=== PATIENT | male | born 1945 | race Caucasian/White ===

== ENCOUNTER 2019-03-21 20:18 | Inpatient (IN) | payer MEDICARE ==
--- NOTE | 2019-03-21 20:36 | ED Physician Chart ---
ED Chief Complaint/HPI - Patient Information Date Seen:: 03/21/19 Time Seen:: 20:15 Chief Complaint:: decrease consciousness History of Present Illness:: Patient was admitted to [facility] two days ago and discharged this p.m. He was admitted there for frequent falls. Patient was transferred to [facility] in [place]. His family visited him there and thought that his LOC was less than normal. Reportedly patient is oriented to 2 and now is oriented to one only. Allergies:: Allergies Allergy/AdvReac Type Severity Reaction Status Date / Time No Known Allergies Allergy Verified 03/21/19 20:25 Historian:: Patient, EMS Review:: Transfer documents Reviewed ED Review of Systems - Review of Systems General/Constitutional: No fever, No chills Skin: No skin lesions Head: No headache Eyes: No loss of vision Neck: No neck pain, No swelling Cardio Vascular: No chest pain Pulmonary: No SOB GI: No nausea, No vomiting, No diarrhea G/U: No dysuria Musculoskeletal: No bone or joint pain Endocrine: No polyuria Psychiatric: Prior psych history, Depression Hematopoietic: No bruising Allergic/Immuno: No urticaria Neurological: No syncope ED Past Medical History - Past Medical History Past Medical History: CVA/TIA, Dyslipidemia, Dementia, Other (depression; 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; she of gout; hyperlipidemia) Family History: Other (not available) Social History: Care Facility, Other (formerly smoked cigarettes and drank alcohol) Surgical History: other (unavailable) Psychiatricy History: Depression, Dementia Medication: Reviewed Family Medical History - Family Member Mother History Unknown: Yes ED Physical Exam - Physical Examination General/Constitutional: Awake, Alert Other Gen/Cons comments:: Patient is alert and confused; he states he years is 1921 Head: Atraumatic Eyes: Lids, conjuctiva normal, PERRL Skin: Nl inspection ENMT: External ears, nose nl, Nasal exam nl Other ENMT comments:: Edentulous with upper dentures Neck: No nuchal rigidity Respiratory: Nl effort/Exclusion, Clear to Auscultation, No Wheeze/Rhonchi/Rales Cardio Vascular: RRR, No murmur, gallop, rubs, NL S1 S2 GI: No tenderness/rebounding/guarding, No organomegaly, No hernia Other Extremities comments:: Right upper extremity contracture Other Neuro/Psych comments:: Right upper Extremity contracture ED Labs/Radiology/EKG Results - Radiology Results Results: Chest x-ray negative; - EKG Interpretations Rate & Rhythm: normal sinus rhythm with a rate of 75 [place]: borderline LAD Comments:: Intraventricular conduction delay ED Septic Shock - . Is Septic Shock (SBP<90, OR Lactate>4 mmol\L) present?: No ED Reassessment (Disposition) - Reassessment Reassessment Condition:: Unchanged - Diagnosis Diagnosis:: Altered level consciousness; status post CVA with right upper extremity paralysis; dementia - Aftercare/Follow up Instructions Aftercare/Follow-Up Instructions:: Refer to Discharge Instructions - Patient Disposition Admitted to:: Med/Surg Spoke to:: Deysi Pedroza Admitting Medical Physician:: Deysi Pedroza Condition at Disposition:: Stable, Unchanged
[2019-03-21 20:46] LABS: % BASOPHILS 2.8 % (0.0-2.0); % EOSINOPHILS 2.9 % (0.0-5.0); % LYMPHOCYTES 34.5 % (20.0-50.0); % MONOCYTES 7.3 % (2.0-10.0); % NEUTROPHILS 52.5 % (40.0-80.0); BASOPHILE ABSOLUTE 0.1 Th/cumm (0-0.2); EOSINOPHILE ABSOLUTE 0.1 Th/cmm (0.1-0.4); HEMATOCRIT 43.6 % (41.0-60); HEMOGLOBIN 14.5 gm/dL (12-16); LYMPHOCYTE ABSOLUTE 1.4 Th/cmm (1.5-3.0); MEAN CELL VOLUME 91.2 fl (80-99); MEAN CORPUSCULAR HEMOGLOBIN 30.2 pg (27.0-31.0); MEAN CORPUSCULAR HGB CONC 33.2 pg (28.0-36.0); MONOCYTE ABSOLUTE 0.3 Th/cmm (0.3-1.0); NEUTROPHILE ABSOLUTE 2.3 Th/cmm (1.8-8.0); PLATELET COUNT 130 Th/cmm (150-400); RED BLOOD COUNT 4.78 Mil/cmm (3.80-5.80); RED CELL DISTRIBUTION WIDTH 13.2 % (11.5-20.0); WHITE BLOOD COUNT 4.2 Th/cmm (4.8-10.8)
[2019-03-21 21:10] LABS: ANION GAP 10.3 (7.0-16.0); BUN - UREA NITROGEN 19 mg/dL (7-25); CALCIUM SERUM 9.3 mg/dL (8.6-10.3); CARBON DIOXIDE 27.4 mEq/L (21.0-31.0); CHLORIDE 106 mEq/L (98-107); CREATININE - SERUM 0.6 mg/dL (0.7-1.3); GLUCOSE 130 mg/dL (70-105); POTASSIUM SERUM 3.7 mEq/L (3.5-5.1); SODIUM SERUM 140 mEq/L (136-145)
[2019-03-22 01:40] VITALS: BP 128/72
[2019-03-22 05:26] LABS: % BASOPHILS 0.5 % (0.0-2.0); % EOSINOPHILS 2.4 % (0.0-5.0); % LYMPHOCYTES 26.8 % (20.0-50.0); % MONOCYTES 7.3 % (2.0-10.0); EOSINOPHILE ABSOLUTE 0.1 Th/cmm (0.1-0.4); HEMOGLOBIN 14.7 gm/dL (12-16); LYMPHOCYTE ABSOLUTE 1.3 Th/cmm (1.5-3.0); MEAN CORPUSCULAR HEMOGLOBIN 30.7 pg (27.0-31.0); MEAN CORPUSCULAR HGB CONC 34.1 pg (28.0-36.0); MONOCYTE ABSOLUTE 0.4 Th/cmm (0.3-1.0); NEUTROPHILE ABSOLUTE 3.2 Th/cmm (1.8-8.0); PLATELET COUNT 124 Th/cmm (150-400); RED BLOOD COUNT 4.77 Mil/cmm (3.80-5.80); RED CELL DISTRIBUTION WIDTH 12.9 % (11.5-20.0)
[2019-03-22 05:40] LABS: ALB/GLOB RATIO 1.4 (1.0-1.8); ALKALINE PHOSPHATASE 80 U/L (34-104); ANION GAP 10.5 (7.0-16.0); BUN - UREA NITROGEN 18 mg/dL (7-25); CALCIUM SERUM 9.5 mg/dL (8.6-10.3); CARBON DIOXIDE 28.1 mEq/L (21.0-31.0); CHLORIDE 104 mEq/L (98-107); CREATININE - SERUM 0.6 mg/dL (0.7-1.3); GLUCOSE 95 mg/dL (70-105); POTASSIUM SERUM 3.6 mEq/L (3.5-5.1); SGOT 14 U/L (13-39); SGPT/ALT 14 U/L (7-52); SODIUM SERUM 139 mEq/L (136-145); TOTAL PROTEIN,SERUM 6.8 gm/dL (6.0-8.3)
[2019-03-22 09:47] LABS: BILIRUBIN,TOTAL 0.6 mg/dL (0.3-1.0)
--- NOTE | 2019-03-22 09:47 | Diagnostic Imaging Report ---
CHEST X-RAY: AP view INDICATION: pain COMPARISON: None FINDINGS: There is mild elevation of right hemidiaphragm There is no focal consolidation or pleural effusions The heart is normal in size. Degenerative changes of the spine are noted. IMPRESSION: No focal airspace consolidation identified.
--- NOTE | 2019-03-22 09:52 | Diagnostic Imaging Report ---
Head CT without intravenous contrast Indication: Altered Comparison: None Technique: Axial images were obtained from the vertex to the skull base without IV contrast. Coronal reconstructions were made. Total DLP: 901, [id number] FINDINGS: Images of the brain obtained without contrast demonstrate no evidence of an acute hemorrhage. Atrophy is noted. There is evidence of old infarct along the left lateral ventricle periventricular region. The ventricles and basal cisterns are patent. No mass effect or midline shift. No evidence of a skull fracture or focal soft tissue swelling. There appears to be partially visualized old fracture of the dens. There is mucosal thickening of paranasal sinuses. IMPRESSION: No evidence of an acute intracranial hemorrhage Atrophy. Old lacunar infarct of the left lateral ventricle periventricular region. There appears to be partially visualized, likely old fracture, of the dens. Please correlate with clinical findings and old exams Additional further assessment CT cervical spine may be obtained if necessary.
--- NOTE | 2019-03-22 10:11 | History and Physical ---
History of Present Illness - HPI Chief Complaint: 73 y/o male patient was brought in to ER due to Decreased consciousness. HPI: 73 y/o male patient was admitted to [facility] due to Decreased consciousness. Patient has history of CVA/TIA, Dyslipidemia, Depression, S/p Cerebrovascular accident with right upper extremity contracture, Gout, Hyperlipidemia, Dementia and Depression. Patient had an ER assessment and a complete workup was done. Patient had a chest x-ray done which was negative. Patient had an EKG performed which showed Borderline LAD, Intraventricular conduction delay. Patient was diagnosed with Altered level of consciousness, Status post CVA with right upper extremity paralysis and Dementia. Patient will have a Cardiology consult and a Psych consult. I will follow, treat and monitor patient. Patient will continue current treatment plan as ordered. Vital Signs: Last Vital Signs Temp 98.5 F 03/22/19 03:55 Pulse 80 03/22/19 03:55 Resp 18 03/22/19 08:00 BP 158/63 03/22/19 03:55 Pulse Ox 95 03/22/19 03:55 Past Medical History Cardiovascular: Report: No Pertinent Hx Pulmonary: Report: No Pertinent Hx [employer]: Report: CVA, Dementia, TIA GI: Report: No Pertinent Hx Psych: Report: Depression Musculoskeletal: Report: Weakness, Other ( right upper extremity contracture, paralysis.) Rheumatologic: Report: Gout Infectious Disease: Report: No Pertinent Hx Renal/: Report: No Pertinent Hx Endocrine: Report: No Pertinent Hx Dermatology: Report: No Pertinent Hx - Past Surgical History Past Surgical History: No pertinent Hx Family Medical History - Family Member Mother History Unknown: Yes Social History Smoke: Quit Alcohol: Other (Former Alcohol use.) Drugs: None Lives: Skilled Nursing Domestic Violence: Negative Health Maintenance Health Maintenance: Other (Please see chart.) - Medications Home Medications: Home Medication Medication Instructions Recorded Type Acetaminophen [Tylenol] 325 mg PO Q4HR PRN 03/21/19 History Allopurinol 300 mg PO DAILY 03/21/19 History Amlodipine Besylate 5 mg PO DAILY 03/21/19 History Aspirin 81 mg PO DAILY 03/21/19 History Atorvastatin Calcium [Lipitor] 10 mg PO DAILY 03/21/19 History Docusate Sodium [Colace] 100 mg PO BID 03/21/19 History Duloxetine HCl [Cymbalta] 20 mg PO HS 03/21/19 History Enoxaparin [Lovenox] 40 mg SUBQ DAILY 03/21/19 History Hydrocodone/Acetaminophen [[place] 2 tab PO Q4HR PRN 03/21/19 History 5-325 Tablet] Mirtazapine [Remeron*] 15 mg PO HS 03/21/19 History QUEtiapine Fumarate [SEROquel] 50 mg PO HS 03/21/19 History QUEtiapine Fumarate [SEROquel] 100 mg PO BID 03/21/19 History Quetiapine Fumarate [Seroquel] 50 mg PO QAM 03/21/19 History traMADol HCl [Ultram*] 50 mg PO Q6H PRN 03/21/19 History Other Medications: Please see medication reconciliation sheet. - Allergies Allergies/Adverse Reactions: Allergies Allergy/AdvReac Type Severity Reaction Status Date / Time No Known Allergies Allergy Verified 03/21/19 20:25 Review of Systems - Review of Systems Review of Systems: Patient had altered level of consciousness. Constitutional: Report: Weakness Eyes: Report: No Significant ENT: Report: No Significant Respiratory: Report: No Significant Cardiovascular: Report: No Significant Gastrointestinal: Report: No Significant Genitourinary: Report: No Significant Musculoskeletal: Report: Other (Right upper extremity contracture, paralysis.) Skin: Report: No Significant Neurological: Report: Weakness Physical Exam - Physical Exam HEENT: Report: Ears Nose Throat within normal limits Neck: Report: Within normal limits Cardiovascular Systems: Report: +s1/s2 noted, Regular, Rate and Rhythm Respiratory: Report: Breath Sounds are within normal limits Abdomen: Report: Non-tender to palpation Back: Report: CVA Tenderness noted on the right flank Extremities: Report: Extremities are contracted Skin: Report: Color of skin is within normal limits Neuro/Psych: Report: Depressed affect, Weakness or sensory loss noted. - Lab Results All Lab Results last 24 hours: Laboratory Results - last 24 hr 03/21/19 03/21/19 03/21/19 20:22 20:22 20:22 WBC 4.2 L RBC 4.78 Hgb 14.5 Hct 43.6 MCV 91.2 MCH 30.2 MCHC Differential 33.2 RDW 13.2 Plt Count 130 L MPV 7.7 Neutrophils % 52.5 Lymphocytes % 34.5 Monocytes % 7.3 Eosinophils % 2.9 Basophils % 2.8 H Sodium 140 Potassium 3.7 Chloride 106 Carbon Dioxide 27.4 Anion Gap 10.3 BUN 19 Creatinine 0.6 L Est GFR ( Amer) TNP Est GFR (Non-Af Amer) TNP BUN/Creatinine Ratio 31.7 Glucose 130 H Calcium 9.3 Total Bilirubin AST ALT Alkaline Phosphatase Ammonia 37 Total Protein Albumin Globulin Albumin/Globulin Ratio 03/22/19 03/22/19 05:15 05:15 WBC 5.0 RBC 4.77 Hgb 14.7 Hct 43.0 MCV 90.0 MCH 30.7 MCHC Differential 34.1 RDW 12.9 Plt Count 124 L MPV 7.6 Neutrophils % 63.0 Lymphocytes % 26.8 Monocytes % 7.3 Eosinophils % 2.4 Basophils % 0.5 Sodium 139 Potassium 3.6 Chloride 104 Carbon Dioxide 28.1 Anion Gap 10.5 BUN 18 Creatinine 0.6 L Est GFR ( Amer) TNP Est GFR (Non-Af Amer) TNP BUN/Creatinine Ratio 30.0 Glucose 95 Calcium 9.5 Total Bilirubin 0.6 AST 14 ALT 14 Alkaline Phosphatase 80 Ammonia Total Protein 6.8 Albumin 4.0 L Globulin 2.8 Albumin/Globulin Ratio 1.4 - Assessment Assessment: Altered level of consciousness. History of CVA/TIA. Dyslipidemia. Depression. 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 Gout. Hyperlipidemia. Dementia. Depression. - Plan Plan: Continuation of care. Cardiology consult and Psych consult requested. Monitor Labs. Continue present meds as directed. Monitor Diet/Nutritional support. Psych management per Psych. Pain Management. Physical therapy. Occupational therapy. Safety precaution. Supportive care. Fall precaution, frequent nursing rounds, and as needed restraints to prevent fall. Continue collaborating with consulting specialists, case management and nursing team. Will Monitor patient and continue current treatment plan as ordered.
[2019-03-22] MEDS ORDERED: VTE Chemical Prophylaxis Screen/Admission MC PRN (11:55)
[2019-03-22] MEDS ORDERED: Hydrocodone/APAP 5mg/325mg Tab PO PRN (13:14)
--- NOTE | 2019-03-22 13:35 | General Progress Note ---
Subjective - Review of Systems Service Date: 03/22/19 Subjective: His weakness in the right upper extremity Objective - Results Result Diagrams: 03/22/19 05:15 03/22/19 05:15 Recent Labs: Laboratory Last Values WBC 5.0 Th/cmm (4.8-10.8) 03/22/19 05:15 RBC 4.77 Mil/cmm (3.80-5.80) 03/22/19 05:15 Hgb 14.7 gm/dL (12-16) 03/22/19 05:15 Hct 43.0 % (41.0-60) 03/22/19 05:15 MCV 90.0 fl (80-99) 03/22/19 05:15 MCH 30.7 pg (27.0-31.0) 03/22/19 05:15 MCHC Differential 34.1 pg (28.0-36.0) 03/22/19 05:15 RDW 12.9 % (11.5-20.0) 03/22/19 05:15 Plt Count 124 Th/cmm (150-400) L 03/22/19 05:15 MPV 7.6 fl 03/22/19 05:15 Neutrophils % 63.0 % (40.0-80.0) 03/22/19 05:15 Lymphocytes % 26.8 % (20.0-50.0) 03/22/19 05:15 Monocytes % 7.3 % (2.0-10.0) 03/22/19 05:15 Eosinophils % 2.4 % (0.0-5.0) 03/22/19 05:15 Basophils % 0.5 % (0.0-2.0) 03/22/19 05:15 Sodium 139 mEq/L (136-145) 03/22/19 05:15 Potassium 3.6 mEq/L (3.5-5.1) 03/22/19 05:15 Chloride 104 mEq/L (98-107) 03/22/19 05:15 Carbon Dioxide 28.1 mEq/L (21.0-31.0) 03/22/19 05:15 Anion Gap 10.5 (7.0-16.0) 03/22/19 05:15 BUN 18 mg/dL (7-25) 03/22/19 05:15 Creatinine 0.6 mg/dL (0.7-1.3) L 03/22/19 05:15 Est GFR ( Amer) TNP 03/22/19 05:15 Est GFR (Non-Af Amer) TNP 03/22/19 05:15 BUN/Creatinine Ratio 30.0 03/22/19 05:15 Glucose 95 mg/dL (70-105) 03/22/19 05:15 Calcium 9.5 mg/dL (8.6-10.3) 03/22/19 05:15 Total Bilirubin 0.6 mg/dL (0.3-1.0) 03/22/19 05:15 AST 14 U/L (13-39) 03/22/19 05:15 ALT 14 U/L (7-52) 03/22/19 05:15 Alkaline Phosphatase 80 U/L (34-104) 03/22/19 05:15 Ammonia 37 umol/L (16-53) 03/21/19 20:22 Total Protein 6.8 gm/dL (6.0-8.3) 03/22/19 05:15 Albumin 4.0 gm/dL (4.2-5.5) L 03/22/19 05:15 Globulin 2.8 gm/dL 03/22/19 05:15 Albumin/Globulin Ratio 1.4 (1.0-1.8) 03/22/19 05:15 - Physical Exam Vitals and I&O: Vital Signs Temp 97.8 F 03/22/19 12:11 Pulse 86 03/22/19 12:11 Resp 20 03/22/19 12:11 BP 149/75 03/22/19 12:11 Pulse Ox 97 03/22/19 12:11 Intake & Output 03/21/19 03/22/19 03/22/19 18:59 06:59 18:59 Output Total 200 Balance -200 Weight (lbs) 85.729 kg Output: Urine 200 Other: # Voids 2 Weight Source Bedscale Active Medications: Current Medications Acetaminophen (Tylenol) 325 mg PO Q4HR PRN PRN Reason: Pain (Mild) Stop: 05/21/19 13:13 Acetaminophen/Hydrocodone Bitart ([place] 5mg/325mg) 2 tab PO Q4HR PRN PRN Reason: Severe Pain Stop: 05/21/19 13:13 Amlodipine Besylate (Norvasc) 5 mg PO DAILY [facility] Stop: 05/22/19 08:59 Aspirin (Aspirin Chewable) 81 mg PO DAILY [facility] Stop: 05/22/19 08:59 Atorvastatin Calcium (Lipitor) 10 mg PO DAILY [facility]; Protocol Stop: 05/22/19 08:59 Docusate Sodium (Colace) 100 mg PO BID [facility] Stop: 05/21/19 16:59 Enoxaparin Sodium (Lovenox) 40 mg SUBQ DAILY [facility] Stop: 05/22/19 08:59 Heparin Sodium (Porcine) (Heparin) 5,000 units SUBQ Q12H [facility] Stop: 05/21/19 20:59 Miscellaneous (Vte Chemical Prophylaxis Screen/ Admission) 1 ea [facility] PRN PRN PRN Reason: PROTOCOL Stop: 05/21/19 11:54 Miscellaneous (Allopurinol [Allopurinol]) 300 mg PO DAILY [facility] Stop: 05/22/19 08:59 Miscellaneous (Duloxetine Hcl [Cymbalta]) 20 mg PO HS [facility] Stop: 05/21/19 20:59 Tramadol HCl (Ultram) 50 mg PO Q6H PRN PRN Reason: Pain (Moderate) Stop: 05/21/19 13:13 General: Alert, No acute distress HEENT: PERRLA, Mucous membr. moist/pink Neck: Supple, JVD, +2 carotid pulse wo bruit (flat) Cardiovascular: Regular rate, Normal S1, Normal S2, Systolic murmurs Abdomen: Bowel sounds, Soft Neurological: Normal gait, Strength at 5/5 X4 ext, Normal tone, Cranial nerves 3 -12 NL, Reflexes 2+
[2019-03-22] MEDS ORDERED: Heparin Sod 5,000Units/ML 5,000 UNITS/ML VIAL SUBQ SCH (21:00)
--- NOTE | 2019-03-23 02:44 | Consultation ---
DATE OF CONSULTATION: 03/22/2019 PATIENT OF: Carlyvinny Connors Yovany Pollock HISTORY AND PHYSICAL: This 73-year-old male patient, with a known history of CVA with contracture of the right upper extremity, came to the hospital with altered level of consciousness for possible new onset of CVA. PAST MEDICAL HISTORY: Hyperlipidemia, major depression, gout, dementia, CVA with late effect, right upper extremity weakness with contractures. FAMILY HISTORY: Unremarkable. SOCIAL HISTORY: No history of smoking, alcohol abuse. ALLERGIES: No known allergies. PHYSICAL EXAMINATION: VITAL SIGNS: Blood pressure 130/80, pulse 70, respirations 20. HEAD: Normocephalic. No lumps or bumps. EYES: Pupils equal, reactive to light. Fundi show AV nicking, sclerae white, conjunctivae pink. NECK: Carotid 2+. Normal upstroke. JVD flat. Thyroid not palpable. Lymph nodes not palpable. CHEST: Shows increased AP diameter. No kyphosis, scoliosis. LUNGS: Bilateral bronchovesicular breath sounds. HEART: PMI fifth intercostal space with lateral to midclavicular line. S1, S2, soft S3, S4. ABDOMEN: Soft. Liver, spleen not palpable. No organomegaly. Bowel sounds active. NEUROLOGIC: Unremarkable. EXTREMITIES: Peripheral pulses 2+. No pedal edema. CLINICAL IMPRESSION: 1. Transient ischemic attack, rule out cerebrovascular accident. 2. Cerebrovascular accident with late effect. 3. Right upper extremity weakness with contractures. 4. Major depression. 5. Hyperlipidemia. 6. Gout. 7. Dementia. PLAN: At the present time, we will admit the patient, monitor the patient on telemetry bed as well as anticoagulate the patient and have echocardiogram. JOB# [id number]
[2019-03-23] MEDS: Aspirin 81mg Chewable Tab PO SCH (08:52)
[2019-03-23] MEDS: Atorvastatin Calcium 10 MG TAB PO SCH (08:52)
[2019-03-23] MEDS: Enoxaparin 40 mg/0.4 mL 0.4mL Syr SUBQ SCH (09:26)
--- NOTE | 2019-03-23 21:05 | Progress Notes ---
DATE: 03/23/2019 SUBJECTIVE: The patient was seen in his room. The patient is asleep, but easily arousable. The patient appears to be comfortable, in no acute distress. The patient is a poor historian due to medical condition. OBJECTIVE: VITAL SIGNS: Temperature 98, heart rate 62, blood pressure 111/72, respirations 18, 97% on room air. HEENT: Head is atraumatic and normocephalic. Eyes: Bilateral conjunctivae are clear. Bilateral pupils equal, round, reactive. NECK: Supple. No JVD. CARDIOVASCULAR: S1 and S2, without murmur. PULMONARY: Clear to auscultation. GASTROINTESTINAL: Soft and nontender without guarding. Positive bowel sounds. MUSCULOSKELETAL: No clubbing. No cyanosis noted. ASSESSMENT: 1. Altered level of consciousness. 2. Dementia. 3. History of cerebrovascular accident. PLAN: We will continue to monitor the patient's condition. The patient is pending for Neurology evaluation. If negative, the patient can go back to half-way facility. Treatment plans were discussed with the patient's nurse. Treatment plans were discussed with Dr. Pedroza. JOB# [id number]
--- NOTE | 2019-03-23 21:18 | Consultation ---
DATE OF CONSULTATION: 03/23/[address] Duque. IDENTIFYING INFORMATION: The patient is a 73-year-old male. HISTORY OF PRESENT ILLNESS: The patient was admitted to [facility] because of decreased consciousness with a history of CVA, TIA, dyslipidemia, depression, history of cerebrovascular accident with right upper extremity contracture, gout, hyperlipidemia, dementia, and depression. The patient has been in the ER assessment, complete workup done. Chest x-ray was negative. The patient denies altered level of consciousness. When I talked to the patient, he was alert. He was cooperative. He was trying to be funny. He does not remember exactly why he came here, he said he may fell down he can remember. He said he is not depressed, so some people say he may be depressed. He does have a diagnosis of depression. The patient's ex- came in and she said that he has a history of depression that he in the last 1-1/2 years since he had a CVA. He has 3 prior psychiatric hospitalizations because of bizarre behavior. Diagnosis of depression that he did very well when he was on the Seroquel. She would like him to be on Seroquel. According to the records, he has been on Cymbalta as well as Remeron and Seroquel, but she does not want him back on the Remeron. The patient himself has no known of that, he has a history of dementia. PAST PSYCHIATRIC HISTORY: The patient denies prior suicide attempt; however, his said that he has been acting bizarre in the last 1-1/2 years with multiple hospitalizations recently, was at [facility]. The patient was unable to say that. The patient denies any prior suicide attempt. The patient with right upper extremity contractures. MEDICAL HISTORY: The patient with a history of TIAs, dyslipidemia, status post CVA with right upper extremity contracture, paralysis, gout, hyperlipidemia, and dementia. ALLERGIES: The patient has no known drug allergy. He was already on Cymbalta, but he did not reconciled the Seroquel, which I will do as per his ex- recommendation or demand. FAMILY AND SOCIAL HISTORY: The patient is for 7 years, was for 6 years, has 2 children, ages 36 and 38, I am not sure if this is right age because of his age. The patient is 73, when the reality he is 54. He believes he was 54. The patient obviously is demented. The patient denies current substance abuse. He said he used to drink when he was younger. Denies having any legal problem or gambling problem, however, he is not a great historian. MENTAL STATUS EXAMINATION: The patient is appropriately dressed, not well groomed. He was in hospital gown. He was alert. He was able to tell me the date with difficulty, he was able to tell me the year 2018, but think it is December and is a 12/23/2018. He denies any visual loss or paranoia. Denies any intent to harm himself or anyone. His long-term memory is poor, cannot remember his age. Recent memory is poor, does not know why he is here. His insight and judgment are questionable. IMPRESSION: Major depression, recurrent with psychosis, dementia. MEDICAL DIAGNOSES: As per medical doctor. RECOMMENDATIONS: I would recommend to continue Seroquel. would like him to go to a nursing facility, not interested in him going to [facility]; however, I will leave it up to the judgment of the attending. Thank you very much for allowing me to participate in the care of this most interesting gentleman. JOB# [id number]
[2019-03-24] MEDS: Enoxaparin 40 mg/0.4 mL 0.4mL Syr SUBQ SCH (08:48)
[2019-03-24] MEDS: Aspirin 81mg Chewable Tab PO SCH (08:49)
[2019-03-24] MEDS: Atorvastatin Calcium 10 MG TAB PO SCH (08:49)
--- NOTE | 2019-03-24 10:19 | Internal Medicine Prog Note ---
Internal Medicine Subjective - Subjective Patient is:: asleep, verbal, arousable, in bed Per staff patient has:: no adverse event, no episodes of fall Internal Medicine Objective - Results Result Diagrams: 03/22/19 05:15 03/22/19 05:15 Recent Labs: Laboratory Last Values WBC 5.0 Th/cmm (4.8-10.8) 03/22/19 05:15 RBC 4.77 Mil/cmm (3.80-5.80) 03/22/19 05:15 Hgb 14.7 gm/dL (12-16) 03/22/19 05:15 Hct 43.0 % (41.0-60) 03/22/19 05:15 MCV 90.0 fl (80-99) 03/22/19 05:15 MCH 30.7 pg (27.0-31.0) 03/22/19 05:15 MCHC Differential 34.1 pg (28.0-36.0) 03/22/19 05:15 RDW 12.9 % (11.5-20.0) 03/22/19 05:15 Plt Count 124 Th/cmm (150-400) L 03/22/19 05:15 MPV 7.6 fl 03/22/19 05:15 Neutrophils % 63.0 % (40.0-80.0) 03/22/19 05:15 Lymphocytes % 26.8 % (20.0-50.0) 03/22/19 05:15 Monocytes % 7.3 % (2.0-10.0) 03/22/19 05:15 Eosinophils % 2.4 % (0.0-5.0) 03/22/19 05:15 Basophils % 0.5 % (0.0-2.0) 03/22/19 05:15 Sodium 139 mEq/L (136-145) 03/22/19 05:15 Potassium 3.6 mEq/L (3.5-5.1) 03/22/19 05:15 Chloride 104 mEq/L (98-107) 03/22/19 05:15 Carbon Dioxide 28.1 mEq/L (21.0-31.0) 03/22/19 05:15 Anion Gap 10.5 (7.0-16.0) 03/22/19 05:15 BUN 18 mg/dL (7-25) 03/22/19 05:15 Creatinine 0.6 mg/dL (0.7-1.3) L 03/22/19 05:15 Est GFR ( Amer) TNP 03/22/19 05:15 Est GFR (Non-Af Amer) TNP 03/22/19 05:15 BUN/Creatinine Ratio 30.0 03/22/19 05:15 Glucose 95 mg/dL (70-105) 03/22/19 05:15 Calcium 9.5 mg/dL (8.6-10.3) 03/22/19 05:15 Total Bilirubin 0.6 mg/dL (0.3-1.0) 03/22/19 05:15 AST 14 U/L (13-39) 03/22/19 05:15 ALT 14 U/L (7-52) 03/22/19 05:15 Alkaline Phosphatase 80 U/L (34-104) 03/22/19 05:15 Ammonia 37 umol/L (16-53) 03/21/19 20:22 Total Protein 6.8 gm/dL (6.0-8.3) 03/22/19 05:15 Albumin 4.0 gm/dL (4.2-5.5) L 03/22/19 05:15 Globulin 2.8 gm/dL 03/22/19 05:15 Albumin/Globulin Ratio 1.4 (1.0-1.8) 03/22/19 05:15 - Physical Exam Vitals and I&O: Vital Signs Temp 98 F 03/24/19 08:00 Pulse 84 03/24/19 08:49 Resp 18 03/24/19 08:00 BP 127/69 03/24/19 08:49 Pulse Ox 98 03/24/19 08:00 Intake & Output 03/23/19 03/24/19 03/24/19 18:59 06:59 18:59 Intake Total 850 250 Output Total 200 Balance 850 50 Weight (lbs) 189 lb 183 lb Intake: Oral 850 250 Output: Urine 200 Other: # Voids 3 3 # Bowel Movements 0 Weight Source Bedscale Bedscale Active Medications: Current Medications Acetaminophen (Tylenol) 325 mg PO Q4HR PRN PRN Reason: Pain (Mild) Stop: 05/21/19 13:13 Acetaminophen/Hydrocodone Bitart ([place] 5mg/325mg) 2 tab PO Q4HR PRN PRN Reason: Severe Pain Stop: 05/21/19 13:13 Last Admin: 03/23/19 23:08 Dose: 2 tab Allopurinol (Zyloprim) 300 mg PO DAILY [facility] Stop: 05/22/19 08:59 Last Admin: 03/24/19 08:48 Dose: 300 mg Amlodipine Besylate (Norvasc) 5 mg PO DAILY [facility] Stop: 05/22/19 08:59 Last Admin: 03/24/19 08:49 Dose: 5 mg Aspirin (Aspirin Chewable) 81 mg PO DAILY [facility] Stop: 05/22/19 08:59 Last Admin: 03/24/19 08:49 Dose: 81 mg Atorvastatin Calcium (Lipitor) 10 mg PO DAILY [facility]; Protocol Stop: 05/22/19 08:59 Last Admin: 03/24/19 08:49 Dose: 10 mg Docusate Sodium (Colace) 100 mg PO BID [facility] Stop: 05/21/19 16:59 Last Admin: 03/24/19 08:49 Dose: 100 mg Duloxetine HCl (Cymbalta) 30 mg PO HS [facility] Stop: 05/21/19 20:59 Last Admin: 03/23/19 20:35 Dose: 30 mg Enoxaparin Sodium (Lovenox) 40 mg SUBQ DAILY [facility] Stop: 05/22/19 08:59 Last Admin: 03/24/19 08:48 Dose: 40 mg Miscellaneous (Vte Chemical Prophylaxis Screen/ Admission) 1 ea [facility] PRN PRN PRN Reason: PROTOCOL Stop: 05/21/19 11:54 Quetiapine Fumarate (Seroquel) 50 mg PO HS [facility]; Protocol Stop: 05/22/19 20:59 Last Admin: 03/23/19 20:36 Dose: 50 mg Quetiapine Fumarate (Seroquel) 50 mg PO QAM [facility]; Protocol Stop: 05/23/19 08:59 Last Admin: 03/24/19 08:48 Dose: 50 mg Tramadol HCl (Ultram) 50 mg PO Q6H PRN PRN Reason: Pain (Moderate) Stop: 05/21/19 13:13 General: alert, NAD HEENT: NC/AT Neck: Supple, No JVD Lungs: CTAB Cardiovascular: RRR, Normal S1, Normal S2 Abdomen: soft, non-tender, non-distended Internal Medicine Assmt/Plan - Assessment Assessment: ALOC Hyperlipidemia Major Depression Gout Dementia CVA RUE weakness - Plan Plan: Continue current treatment plan. Monitor Labs.Continue current medications Continue to monitor VS Monitor Diet/Nutritional support. Pain Management. PT/OT prn Safety precaution, Fall precaution, frequent nursing round. Supportive care. Continue collaborating with consulting specialists, case management and nursing team. CT Head negative for bleed. Appreciate data communications software consultant recs. Disposition: possible discharge today.
--- NOTE | 2019-03-24 22:56 | Progress Notes ---
DATE: 03/24/2019 Case was discussed with staff of the patient, also discussed the care with his yesterday who would like for the patient to go to his SNF facility. He has been hospitalized many times because of bizarre behavior. I restarted him on the Seroquel as per the request of his ex- who happened to be here. He continues to have poor insight, unpredictable, impulsive. He did have a CT scan of the head that shows atrophy, old lacunar infarct in the left lateral periventricular region and also there is likely an old fracture of the dense. The patient is on Cymbalta and Seroquel with no side effects, no sedation, no nausea and the patient will need to follow up with the psychiatrist upon discharge, then his advised she would like to go to [facility], but she does not want him. She said she would like him to go to a SNF facility, has been hospitalized many times. Thank you very much for allowing me to participate in the care of this most interesting gentleman. [facility]# [id number]
[2019-03-25] MEDS: Aspirin 81mg Chewable Tab PO SCH (08:05)
[2019-03-25] MEDS: Enoxaparin 40 mg/0.4 mL 0.4mL Syr SUBQ SCH (08:05)
[2019-03-25] MEDS: Atorvastatin Calcium 10 MG TAB PO SCH (08:06)
--- NOTE | 2019-03-25 11:01 | Internal Medicine Prog Note ---
Internal Medicine Subjective - Subjective Service Date: 03/25/19 Patient is:: asleep, verbal, arousable, in bed Patient Complaints of:: other (unpredictable, impulsive behavior.) Per staff patient has:: no adverse event, no episodes of fall Internal Medicine Objective - Results Result Diagrams: 03/22/19 05:15 03/22/19 05:15 Recent Labs: Laboratory Last Values WBC 5.0 Th/cmm (4.8-10.8) 03/22/19 05:15 RBC 4.77 Mil/cmm (3.80-5.80) 03/22/19 05:15 Hgb 14.7 gm/dL (12-16) 03/22/19 05:15 Hct 43.0 % (41.0-60) 03/22/19 05:15 MCV 90.0 fl (80-99) 03/22/19 05:15 MCH 30.7 pg (27.0-31.0) 03/22/19 05:15 MCHC Differential 34.1 pg (28.0-36.0) 03/22/19 05:15 RDW 12.9 % (11.5-20.0) 03/22/19 05:15 Plt Count 124 Th/cmm (150-400) L 03/22/19 05:15 MPV 7.6 fl 03/22/19 05:15 Neutrophils % 63.0 % (40.0-80.0) 03/22/19 05:15 Lymphocytes % 26.8 % (20.0-50.0) 03/22/19 05:15 Monocytes % 7.3 % (2.0-10.0) 03/22/19 05:15 Eosinophils % 2.4 % (0.0-5.0) 03/22/19 05:15 Basophils % 0.5 % (0.0-2.0) 03/22/19 05:15 Sodium 139 mEq/L (136-145) 03/22/19 05:15 Potassium 3.6 mEq/L (3.5-5.1) 03/22/19 05:15 Chloride 104 mEq/L (98-107) 03/22/19 05:15 Carbon Dioxide 28.1 mEq/L (21.0-31.0) 03/22/19 05:15 Anion Gap 10.5 (7.0-16.0) 03/22/19 05:15 BUN 18 mg/dL (7-25) 03/22/19 05:15 Creatinine 0.6 mg/dL (0.7-1.3) L 03/22/19 05:15 Est GFR ( Amer) TNP 03/22/19 05:15 Est GFR (Non-Af Amer) TNP 03/22/19 05:15 BUN/Creatinine Ratio 30.0 03/22/19 05:15 Glucose 95 mg/dL (70-105) 03/22/19 05:15 Calcium 9.5 mg/dL (8.6-10.3) 03/22/19 05:15 Total Bilirubin 0.6 mg/dL (0.3-1.0) 03/22/19 05:15 AST 14 U/L (13-39) 03/22/19 05:15 ALT 14 U/L (7-52) 03/22/19 05:15 Alkaline Phosphatase 80 U/L (34-104) 03/22/19 05:15 Ammonia 37 umol/L (16-53) 03/21/19 20:22 Total Protein 6.8 gm/dL (6.0-8.3) 03/22/19 05:15 Albumin 4.0 gm/dL (4.2-5.5) L 03/22/19 05:15 Globulin 2.8 gm/dL 03/22/19 05:15 Albumin/Globulin Ratio 1.4 (1.0-1.8) 03/22/19 05:15 - Physical Exam Vitals and I&O: Vital Signs Temp 97 F 03/25/19 08:00 Pulse 66 03/25/19 08:06 Resp 18 03/25/19 08:32 BP 121/61 03/25/19 08:06 Pulse Ox 94 03/25/19 08:00 Intake & Output 03/24/19 03/25/19 03/25/19 18:59 06:59 18:59 Intake Total 400 150 Output Total 100 Balance 300 150 Weight (lbs) 83.007 kg 85.445 kg Intake: Oral 400 150 Output: Urine 100 Other: # Voids 2 2 # Bowel Movements 0 Weight Source Bedscale Bedscale Active Medications: Current Medications Acetaminophen (Tylenol) 325 mg PO Q4HR PRN PRN Reason: Pain (Mild) Stop: 05/21/19 13:13 Acetaminophen/Hydrocodone Bitart ([place] 5mg/325mg) 2 tab PO Q4HR PRN PRN Reason: Severe Pain Stop: 05/21/19 13:13 Last Admin: 03/23/19 23:08 Dose: 2 tab Allopurinol (Zyloprim) 300 mg PO DAILY [facility] Stop: 05/22/19 08:59 Last Admin: 03/25/19 08:05 Dose: 300 mg Amlodipine Besylate (Norvasc) 5 mg PO DAILY [facility] Stop: 05/22/19 08:59 Last Admin: 03/25/19 08:06 Dose: 5 mg Aspirin (Aspirin Chewable) 81 mg PO DAILY [facility] Stop: 05/22/19 08:59 Last Admin: 03/25/19 08:05 Dose: 81 mg Atorvastatin Calcium (Lipitor) 10 mg PO DAILY [facility]; Protocol Stop: 05/22/19 08:59 Last Admin: 03/25/19 08:06 Dose: 10 mg Docusate Sodium (Colace) 100 mg PO BID [facility] Stop: 05/21/19 16:59 Last Admin: 03/25/19 08:05 Dose: 100 mg Duloxetine HCl (Cymbalta) 30 mg PO HS [facility] Stop: 05/21/19 20:59 Last Admin: 03/24/19 21:30 Dose: 30 mg Enoxaparin Sodium (Lovenox) 40 mg SUBQ DAILY [facility] Stop: 05/22/19 08:59 Last Admin: 03/25/19 08:05 Dose: 40 mg Miscellaneous (Vte Chemical Prophylaxis Screen/ Admission) 1 ea MC PRN PRN PRN Reason: PROTOCOL Stop: 05/21/19 11:54 Quetiapine Fumarate (Seroquel) 50 mg PO HS [facility]; Protocol Stop: 05/22/19 20:59 Last Admin: 03/24/19 21:30 Dose: 50 mg Quetiapine Fumarate (Seroquel) 50 mg PO QAM [facility]; Protocol Stop: 05/23/19 08:59 Last Admin: 03/25/19 08:06 Dose: 50 mg Tramadol HCl (Ultram) 50 mg PO Q6H PRN PRN Reason: Pain (Moderate) Stop: 05/21/19 13:13 Physical Exam: Patient continues to be impulsive, very unpredictable. General: alert, NAD HEENT: NC/AT Neck: Supple, No JVD Lungs: CTAB Cardiovascular: RRR, Normal S1, Normal S2 Abdomen: soft, non-tender, non-distended Extremities: clear Neurological: no change Internal Medicine Assmt/Plan - Assessment Assessment: Altered level of consciousness. History of CVA/TIA. Dyslipidemia. Depression. 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 Gout. Hyperlipidemia. Dementia. Depression. - Plan Plan: Continuation of care. Cardiology consult and Psych consult requested. Monitor Labs. Continue present meds as directed. Monitor Diet/Nutritional support. Psych management per Psych. Pain Management. Physical therapy. Occupational therapy. Safety precaution. Supportive care. Fall precaution, frequent nursing rounds, and as needed restraints to prevent fall. Continue collaborating with consulting specialists, case management and nursing team. Will Monitor patient and continue present care management. Nutritional Asmnt/Malnutr-PDOC - Dietary Evaluation Malnutrition Findings (Please click <Entered> for more info): see orders.
== END 2019-03-25 16:15 | DRG 69 ==
LOC: ER 20:18 → MSI 23:00
PROVIDERS: ADMIT Internal Medicine; ATTEND Internal Medicine
DX: G45.9 Transient cerebral ischemic attack, unspecified (principal); F33.3 Major depressive disorder, recurrent, severe with psychotic symptoms; M10.9 Gout, unspecified; F03.90 Unspecified dementia, unspecified severity, without behavioral disturbance, psychotic disturbance, mood disturbance, and anxiety; E78.5 Hyperlipidemia, unspecified; I69.361 Other paralytic syndrome following cerebral infarction affecting right dominant side; Z87.891 Personal history of nicotine dependence; Z79.82 Long term (current) use of aspirin
CPT/HCPCS: 36415-UA; 70450-TC; 71045-TC; 80048-TC; 80053-TC; 82140-TC; 85025-TC; 93005; J1650; Z7610